=== PATIENT | male | born 1975 | race Two or more races ===

== ENCOUNTER → 2024-08-30 | Outpatient (CLI) | payer BC, SELFPAY ==
--- NOTE | 2024-08-30 13:36 | XR_ITS ---
EXAMINATION: Cervical spine, 5 views Technique: Cervical spine AP, AP odontoid, lateral, bilateral obliques, 5 views Exam date and time: August 30, 2024 at 1338 hours INDICATIONS: Neck pain beginning several weeks ago FINDINGS: Adequate alignment cervical field bodies No cervical fracture Intact odontoid Moderate degenerative disc disease C5-C6, C6-C7 with anterior posterior osteophyte formation and mild bilateral neural foraminal stenosis No cortical bone destruction IMPRESSION: Moderate degenerative disc disease C5-C6, C6-C7
== END | disposition home or self-care (01) ==
PROVIDERS: PCP Nurse Practitioner Family; Referring Provider Nurse Practitioner Family; Visit Provider Nurse Practitioner Family
DX: M50.322 Other cervical disc degeneration at C5-C6 level (principal)
CPT/HCPCS: 72050

== ENCOUNTER → 2025-03-23 | Outpatient (CLI) | payer BC, SELFPAY ==
--- NOTE | 2025-03-23 | XR_ITS ---
Examination: PA lateral chest 2 views TECHNIQUE: Upright PA lateral chest 2 views Date and time: March 23, 2025 1134 hours Comparison May 09, 2019 INDICATIONS: Coughing 3 weeks. FINDINGS: Significant pneumonia left upper lobe Normal heart size Right lung clear Prominent osteopenia IMPRESSION: Significant pneumonia left upper lobe
== END | disposition home or self-care (01) ==
LOC: CDIM 10:46
PROVIDERS: PCP Family Medicine; Referring Provider Nurse Practitioner Family; Visit Provider Nurse Practitioner Family
DX: J18.9 Pneumonia, unspecified organism (principal)
CPT/HCPCS: 71046

== ENCOUNTER → 2025-03-29 | Outpatient (CLI) | payer BC, SELFPAY ==
[2025-03-29 12:30] LABS: Cocci Serology, IgM Positive (Negative)
[2025-03-29 12:30] LABS: Cocid Sro, CF/ID (UCD) NO CHG* See Sep Rpt
== END | disposition home or self-care (01) ==
LOC: COPL 09:00
PROVIDERS: PCP Family Medicine; Referring Provider Nurse Practitioner Family; Visit Provider Nurse Practitioner Family
DX: J15.9 Unspecified bacterial pneumonia (principal)
CPT/HCPCS: 36415; 86635

== ENCOUNTER → 2025-04-24 | Outpatient (CLI) | payer BC, SELFPAY ==
--- NOTE | 2025-04-24 14:23 | XR_ITS ---
Examination: PA lateral chest 2 views TECHNIQUE: Upright PA lateral chest 2 views Date and time: April 24, 2025, 1443 hours, comparison March 23, 2025. INDICATIONS: Diagnosis coccidiomycosis. FINDINGS: Pneumonia left upper lobe has cleared No interval pneumonia. Normal heart size IMPRESSION: No active disease.
--- NOTE | 2025-04-24 14:24 | XR_ITS ---
Examination: Shoulder,right, 3 views Technique: Shoulder AP internal rotation, AP external rotation, Y view shoulder, 3 views Exam date and time :April 24, 2025 1441 hours INDICATIONS: Right shoulder pain beginning 2 weeks ago. FINDINGS: No fracture or dislocation. Mild narrowing glenohumeral joint. Mild osteoarthritis acromioclavicular joint IMPRESSION: Mild osteoarthritis
[2025-04-25 12:04] LABS: Cocci Serology, IgM Positive (Negative)
[2025-04-25 12:04] LABS: Cocid Sro, CF/ID (UCD) NO CHG* See Sep Rpt
== END | disposition home or self-care (01) ==
LOC: CDIM 14:21 → COPL 14:51
PROVIDERS: PCP Family Medicine; Referring Provider Nurse Practitioner Family; Visit Provider Radiology Diagnostic Radiology
DX: M19.011 Primary osteoarthritis, right shoulder (principal); J15.9 Unspecified bacterial pneumonia; R76.0 Raised antibody titer
CPT/HCPCS: 36415; 71046; 73030; 86635